=== PATIENT | male | born 1980 | race Caucasian/White ===

== ENCOUNTER 2022-05-08 16:24 | Emergency (ER) | payer SELFPAY | END 2022-05-08 17:32 | disposition home or self-care (01) | LOC: ERS 16:24 | DX: B34.9 Viral infection, unspecified (principal); E11.9 Type 2 diabetes mellitus without complications; F17.210 Nicotine dependence, cigarettes, uncomplicated | CPT/HCPCS: 99283 ==

== ENCOUNTER 2022-05-09 12:51 | Emergency (ER) | payer SELFPAY | END 2022-05-09 15:12 | disposition home or self-care (01) | LOC: ERS 12:51 | DX: J11.1 Influenza due to unidentified influenza virus with other respiratory manifestations (principal); E11.9 Type 2 diabetes mellitus without complications; F17.210 Nicotine dependence, cigarettes, uncomplicated; Z20.822 Contact with and (suspected) exposure to COVID-19 | CPT/HCPCS: 87804; 99283; U0003; U0005 ==

== ENCOUNTER 2023-01-20 13:15 | Emergency (ER) | payer SELFPAY ==
[2023-01-20] MEDS ORDERED: HYDROcodone/Acetaminophen 10/325 mg Tablet ONE (13:56)
== END 2023-01-20 14:15 | disposition home or self-care (01) ==
LOC: ERS 13:15
DX: K08.89 Other specified disorders of teeth and supporting structures (principal); E11.9 Type 2 diabetes mellitus without complications; F17.210 Nicotine dependence, cigarettes, uncomplicated
CPT/HCPCS: 99282

== ENCOUNTER 2024-04-26 00:53 | Emergency (ER) | payer SELFPAY ==
[2024-04-26 01:41] LABS: #Basophils 0.12 10x3/uL (0.0-0.2); %Basophils 1.1 % (0.0-1.0); %Eosinophils 3.9 % (0.0-10.0); %Lymphocytes 24.5 % (21.0-51.0); %Monocytes 7.9 % (0.0-10.0); %Neutrophils 62.3 % (42.0-75.0); Hematocrit 43.5 % (42.0-52.0); Hemoglobin 14.3 g/dL (14.0-18.0); Mean Corpuscular HGB CONC 32.9 g/dL (32.0-36.0); Mean Corpuscular Hemoglobin 28.9 pg (27.0-31.0); Mean Corpuscular Volume 88.1 fL (78.0-98.0); Mean Platelet Volume 9.9 fL (7.4-10.4); Platelet Count 268 10x3/uL (130-400); RBC Distribution Width 12.5 % (11.5-14.5); Red Blood Cell (RBC) Count 4.94 mill/uL (4.70-6.10)
[2024-04-26 01:56] LABS: Calc. Creatinine Clearance 0 mL/min (70-130); Estimated GFR 109
[2024-04-26 01:58] LABS: ALT (SGPT) 15 U/L (8-55); AST (SGOT) 11 U/L (5-34); Albumin 3.3 g/dL (3.5-5.0); Alkaline Phosphatase 100 U/L (40-110); Anion Gap 13 mmol/L (10-20); BUN (Urea Nitrogen) 13 mg/dL (8.9-20.6); Bilirubin, Total 0.3 mg/dL (0.2-1.2); Calcium 8.5 mg/dL (7.8-10.44); Carbon Dioxide 26 mmol/L (22-29); Chloride 102 mmol/L (98-107); Globulin 3.7 g/dL (2.4-3.5); Glucose 316 mg/dL (70-105); Potassium 3.8 mmol/L (3.5-5.1); Sodium 137 mmol/L (136-145)
[2024-04-26] MEDS ORDERED: Sulfameth/Trimethoprim DS 800-160mg TAB ONE (02:09)
[2024-04-26] MEDS ORDERED: Ibuprofen 800 MG TAB ONE (02:09)
== END 2024-04-26 02:20 | disposition home or self-care (01) ==
LOC: ERS 00:53
DX: L02.211 Cutaneous abscess of abdominal wall (principal); L03.311 Cellulitis of abdominal wall; E11.9 Type 2 diabetes mellitus without complications; F17.210 Nicotine dependence, cigarettes, uncomplicated; Z79.84 Long term (current) use of oral hypoglycemic drugs
CPT/HCPCS: 36415; 80053; 85025; 99283